=== PATIENT | female | born 1985 | race Caucasian/White ===

== ENCOUNTER 2017-10-04 03:28 | Inpatient (IN) | payer OTHER ==
[2017-10-04] MEDS: NS 1,000 ML IV (06:23)
[2017-10-04] MEDS: HYOSCYAMINE SULFATE 0.125 MG SUBL TABLET SL (06:24)
[2017-10-04] MEDS: ONDANSETRON 4MG/2ML VIAL (J2405) IV (06:24)
[2017-10-04] MEDS: KETOROLAC 30 MG/ML VIAL (J1885) IV (06:26)
[2017-10-04 06:43] LABS: BASO # 0.1 10^3/uL (0.0-0.2); BASO % 0.5 % (0.0-1.0); EOS # 0.1 10^3/uL (0.0-0.50); HEMATOCRIT 39.8 % (36.0-47.0); HEMOGLOBIN 13.2 g/dl (12.0-16.0); IMMATURE GRANULOCYTE # 0.1 10^3/uL (0-0); IMMATURE GRANULOCYTE % 0.7 % (0-0); LYMPH # 1.6 10^3/uL (1.5-4.5); LYMPH % 13.3 % (24.0-44.0); MEAN CORPUSCULAR HEMOGLOBIN 29.5 pg (27.0-33.0); MEAN CORPUSCULAR HGB CONC 33.2 g/dl (32.0-36.5); MEAN CORPUSCULAR VOLUME 88.8 fl (80.0-96.0); MONO # 0.5 10^3/uL (0.0-0.8); MONO % 4.2 % (0.0-5.0); NEUTROPHILS # 9.4 10^3/uL (1.8-7.7); NEUTROPHILS % 80.3 % (36.0-66.0); PLATELET COUNT, AUTOMATED 320 10^3/uL (150-450); RED BLOOD COUNT 4.48 10^6/uL (4.00-5.40); RED CELL DISTRIBUTION WIDTH 13.8 % (11.5-14.5); WHITE BLOOD COUNT 11.7 10^3/uL (4.0-10.0)
[2017-10-04 06:46] LABS: ALBUMIN 3.2 GM/DL (3.2-5.2); ALBUMIN/GLOBULIN RATIO 0.73 (1.00-1.93); ALKALINE PHOSPHATASE 57 U/L (45-117); ALT/SGPT 92 U/L (12-78); ANION GAP 11 MEQ/L (8-16); AST/SGOT 111 U/L (7-37); BILIRUBIN,DIRECT 0.4 MG/DL (0.0-0.2); BILIRUBIN,TOTAL 0.8 MG/DL (0.2-1.0); BLOOD UREA NITROGEN 14 MG/DL (7-18); CALCIUM LEVEL 9.3 MG/DL (8.5-10.1); CARBON DIOXIDE LEVEL 23 MEQ/L (21-32); CHLORIDE LEVEL 104 MEQ/L (98-107); CREATININE FOR GFR 1.04 MG/DL (0.55-1.02); GLOMERULAR FILTRATION RATE > 60.0 (>60); GLUCOSE, FASTING 231 MG/DL (70-105); LIPASE 11200 U/L (73-393); POTASSIUM SERUM 4.2 MEQ/L (3.5-5.1); SODIUM LEVEL 138 MEQ/L (136-145); TOTAL PROTEIN 7.6 GM/DL (6.4-8.2)
[2017-10-04] MEDS ORDERED: NORCO, ANEXSIA 5/325MG TABLET (HYDROcodone/ACETAMINOPHEN) PO (10:15)
[2017-10-04] MEDS ORDERED: MORPHINE 2 MG/ML 1ML SYRINGE IV (10:15)
[2017-10-04] MEDS ORDERED: KETOROLAC 30 MG/ML VIAL (J1885) IV (10:15)
[2017-10-04] MEDS ORDERED: ONDANSETRON 4MG/2ML VIAL (J2405) IV (10:15)
[2017-10-04] MEDS: PANTOPRAZOLE 40MG TAB (PROTONIX) PO (14:35)
[2017-10-04] MEDS: SENOKOT S TAB PO ×2 (14:35→20:08)
[2017-10-04] MEDS: LR 1,000 ML IV ×2 (14:35→20:06)
[2017-10-04] MEDS: HEPARIN SOD (PORCINE) 5000 UNITS/ML VIAL SC ×2 (14:35→21:20)
[2017-10-04] MEDS ORDERED: INFLUENZA QUADRIVALENT PF VACCINE 0.5ML SYRINGE (90686) IM (16:15)
[2017-10-04] MEDS: ACETAMINOPHEN TAB 650MG DOSE (2X325MG) PO (20:08)
[2017-10-05] MEDS: LR 1,000 ML IV (04:33)
[2017-10-05] MEDS: HEPARIN SOD (PORCINE) 5000 UNITS/ML VIAL SC (06:30)
[2017-10-05 07:14] LABS: HEMATOCRIT 37.2 % (36.0-47.0); HEMOGLOBIN 11.8 g/dl (12.0-16.0); MEAN CORPUSCULAR HEMOGLOBIN 28.4 pg (27.0-33.0); MEAN CORPUSCULAR HGB CONC 31.7 g/dl (32.0-36.5); MEAN CORPUSCULAR VOLUME 89.6 fl (80.0-96.0); PLATELET COUNT, AUTOMATED 269 10^3/uL (150-450); RED BLOOD COUNT 4.15 10^6/uL (4.00-5.40); RED CELL DISTRIBUTION WIDTH 13.5 % (11.5-14.5); WHITE BLOOD COUNT 5.8 10^3/uL (4.0-10.0)
[2017-10-05 07:42] LABS: ALBUMIN 2.7 GM/DL (3.2-5.2); ALBUMIN/GLOBULIN RATIO 0.73 (1.00-1.93); ALKALINE PHOSPHATASE 47 U/L (45-117); ALT/SGPT 83 U/L (12-78); ANION GAP 6 MEQ/L (8-16); AST/SGOT 49 U/L (7-37); BILIRUBIN,TOTAL 0.5 MG/DL (0.2-1.0); BLOOD UREA NITROGEN 13 MG/DL (7-18); CARBON DIOXIDE LEVEL 27 MEQ/L (21-32); CHLORIDE LEVEL 107 MEQ/L (98-107); GLOMERULAR FILTRATION RATE > 60.0 (>60); GLUCOSE, FASTING 154 MG/DL (70-105); LIPASE 287 U/L (73-393); POTASSIUM SERUM 4.2 MEQ/L (3.5-5.1); SODIUM LEVEL 140 MEQ/L (136-145); TOTAL PROTEIN 6.4 GM/DL (6.4-8.2)
[2017-10-05] MEDS: SENOKOT S TAB PO (08:48)
[2017-10-05] MEDS: PANTOPRAZOLE 40MG TAB (PROTONIX) PO (08:48)
== END 2017-10-05 10:55 | disposition home or self-care (01) | DRG 440 ==
LOC: M ED 03:28 → M ED INP 10:01 → M PED 13:55
DX: K85.10 Biliary acute pancreatitis without necrosis or infection (principal); I10 Essential (primary) hypertension; Z88.5 Allergy status to narcotic agent; Z90.5 Acquired absence of kidney; Z79.899 Other long term (current) drug therapy

== ENCOUNTER → 2017-10-21 | Outpatient (CLI) | payer OTHER | LOC: M WUC 11:45 | DX: Z01.812 Encounter for preprocedural laboratory examination (principal); R06.02 Shortness of breath; F17.200 Nicotine dependence, unspecified, uncomplicated | CPT/HCPCS: 71046 ==

== ENCOUNTER 2017-10-26 07:31 | Day surgery (SDC) | payer OTHER ==
[2017-10-26 08:15] LABS: CONTROL LINE UCG INT CTR LINE PRESENT; URINE PREG TEST NEGATIVE (NEGATIVE)
[2017-10-26] MEDS: LR 1,000 ML IV (08:25)
[2017-10-26] MEDS ORDERED: KETOROLAC 60 MG/2 ML VIAL (J1885) As Ordered (09:01)
[2017-10-26] MEDS ORDERED: MIDAZOLAM INJ 2 MG/2 ML VIAL (J2250) As Ordered (09:01)
[2017-10-26] MEDS ORDERED: ONDANSETRON 4MG/2ML VIAL (J2405) As Ordered ×2 (09:01→10:16)
[2017-10-26] MEDS ORDERED: fentaNYL 250 MCG/5 ML INJECTION (J3010) As Ordered (09:01)
[2017-10-26] MEDS ORDERED: PROPOFOL 200 MG/20 ML VIAL As Ordered ×2 (09:01→09:48)
[2017-10-26] MEDS ORDERED: LIDOCAINE 2% INJ 100 MG/5 ML SDV (FOR ANES.) As Ordered (09:01)
[2017-10-26] MEDS ORDERED: dexameTHASONE 4 MG/ML 1ML VIAL (J1100) As Ordered (09:01)
[2017-10-26] MEDS ORDERED: ROCURONIUM BROMIDE 50 MG/5 ML VIAL As Ordered ×2 (09:01→09:17)
[2017-10-26] MEDS ORDERED: GLYCOPYRROLATE INJ 0.2 MG/ML 2 ML VIAL As Ordered ×3 (09:06)
[2017-10-26] MEDS ORDERED: NEOSTIGMINE 10 MG/10 ML VIAL (J2710) As Ordered (09:06)
[2017-10-26] MEDS ORDERED: fentaNYL 100 MCG/2 ML INJECTION (J3010) As Ordered (09:23)
[2017-10-26] MEDS: BUPIVACAINE HCL 0.25% 30 ML VIAL As Ordered (09:57)
[2017-10-26] MEDS ORDERED: METOCLOPRAMIDE INJ 10MG/2ML VIAL (J2765) As Ordered (10:16)
[2017-10-26] MEDS: ONDANSETRON 4MG/2ML VIAL (J2405) IV (10:20)
[2017-10-26] MEDS: fentaNYL 100 MCG/2 ML INJECTION (J3010) IV ×2 (10:29→10:36)
[2017-10-26] MEDS ORDERED: PERCOCET 5MG/325MG TAB PO (10:30)
[2017-10-26] MEDS ORDERED: LR 1,000 ML IV (10:30)
[2017-10-26] MEDS: METOCLOPRAMIDE INJ 10MG/2ML VIAL (J2765) IV (11:08)
[2017-10-26] MEDS: NORCO, ANEXSIA 5/325MG TABLET (HYDROcodone/ACETAMINOPHEN) PO (11:42)
== END 2017-10-26 11:58 | disposition home or self-care (01) ==
LOC: M SDC 07:31
DX: K80.10 Calculus of gallbladder with chronic cholecystitis without obstruction (principal); K85.10 Biliary acute pancreatitis without necrosis or infection; I10 Essential (primary) hypertension; E66.9 Obesity, unspecified; N20.0 Calculus of kidney; F41.9 Anxiety disorder, unspecified; F32.9 Major depressive disorder, single episode, unspecified; Z68.44 Body mass index [BMI] 60.0-69.9, adult; Z88.5 Allergy status to narcotic agent; Z91.09 Other allergy status, other than to drugs and biological substances; Z79.3 Long term (current) use of hormonal contraceptives; Z79.899 Other long term (current) drug therapy; Z72.0 Tobacco use
CPT/HCPCS: 47562

== ENCOUNTER → 2024-05-25 | Outpatient (CLI) | payer OTHER ==
[~2024-05-25] MED LIST: DEPO150I IM; IBUP600T PO; LISI10TA22 PO; ONDA-1 OR; PERC5TAB8 OR; ZOLO50TA PO
== END ==
LOC: M WHC 11:36
PROVIDERS: ATTEND Physician Assistant Medical
DX: R10.2 Pelvic and perineal pain (principal); D25.1 Intramural leiomyoma of uterus

== ENCOUNTER → 2024-10-10 | Outpatient (CLI) | payer OTHER | LOC: M WHC 10:11 | PROVIDERS: ATTEND Obstetrics & Gynecology Obstetrics | DX: N93.9 Abnormal uterine and vaginal bleeding, unspecified (principal); D25.1 Intramural leiomyoma of uterus ==

== ENCOUNTER 2025-05-14 16:31 | Emergency (ER) | payer OTHER ==
[~2025-05-14] VITALS: Ht 154.9 cm; Wt 118.2 kg
[2025-05-14] MEDS ORDERED: LISI5TAB11 (16:53)
[2025-05-14] MEDS ORDERED: ESCITALOPRAM (16:53)
[2025-05-14] MEDS ORDERED: LORA-1041 (16:53)
[2025-05-14] MEDS ORDERED: METF10004 (16:53)
[2025-05-14] MEDS ORDERED: FARX1TAB5 (16:53)
[2025-05-14] MEDS ORDERED: VENTAER (16:53)
[2025-05-14] MEDS ORDERED: MELO15TA28 PO (20:38)
[2025-05-14 20:57] VITALS: BP 127/77; TEMP 97.5; O2SAT 99
[2025-05-14] MEDS: MELOXICAM 7.5 MG TAB PO STA (21:00)
== END 2025-05-14 21:03 | disposition home or self-care (01) ==
LOC: M ED 16:31
DX: S40.012A Contusion of left shoulder, initial encounter (principal); S30.0XXA Contusion of lower back and pelvis, initial encounter; W10.8XXA Fall (on) (from) other stairs and steps, initial encounter; Y92.009 Unspecified place in unspecified non-institutional (private) residence as the place of occurrence of the external cause; Y93.9 Activity, unspecified; Y99.9 Unspecified external cause status; E11.9 Type 2 diabetes mellitus without complications; I10 Essential (primary) hypertension; F32.A Depression, unspecified; J30.1 Allergic rhinitis due to pollen; J30.89 Other allergic rhinitis; Z79.84 Long term (current) use of oral hypoglycemic drugs; Z79.899 Other long term (current) drug therapy; Z88.5 Allergy status to narcotic agent

== ENCOUNTER 2025-07-04 11:08 | Emergency (ER) | payer OTHER ==
[~2025-07-04] VITALS: Ht 154.9 cm; Wt 117.5 kg
[~2025-07-04 11:08] MED LIST changes: +ESCITALOPRAM; +FARX1TAB5; +LISI5TAB11 PO; +LORA-1041 PO; +MELO15TA28 PO; +METF10004 PO; +VENTAER
[2025-07-04] MEDS ORDERED: TIRZ2.5P (11:42)
[2025-07-04] MEDS ORDERED: ROPI0.5T21 PO (11:42)
[2025-07-04 12:23] LABS: KETONE, URINE AUTO RFX NEGATIVE (NEGATIVE); LEUKOCYTE ESTERASE UR AUTO RFX NEGATIVE (NEGATIVE); NITRITE, URINE AUTO RFX NEGATIVE (NEGATIVE); RBC, URINE AUTO RFX 2 /HPF (0-3); SQUAM EPITHELIAL CELL UR AURFX 8 /HPF (0-6); WBC, URINE AUTO RFX 5 /HPF (0-3)
[2025-07-04 12:24] LABS: BASO # 0.1 10^3/uL (0.0-0.2); BASO % 0.7 % (0.0-1.0); EOS # 0.3 10^3/uL (0.0-0.5); EOS % 2.7 % (0.0-3.0); LYMPH # 1.8 10^3/uL (1.5-5.0); LYMPH % 17.3 % (24.0-44.0); MONO # 0.5 10^3/uL (0.0-0.8); MONO % 4.9 % (2.0-8.0); NEUTROPHILS # 7.5 10^3/uL (1.5-8.5); NEUTROPHILS % 74.1 % (36.0-66.0); PLATELET COUNT, AUTOMATED 371 10^3/uL (150-450)
[2025-07-04] MEDS: ONDANSETRON 4MG 2ML VIAL IV ONE (12:39)
[2025-07-04] MEDS: NS (Normal Saline) 0.9% 1,000 ML IV ONE (12:40)
[2025-07-04] MEDS: ACETAMINOPHEN *IV* 1,000 MG in IV 1 EA IV ONE (12:40)
[2025-07-04 12:55] LABS: ALT/SGPT 36 U/L (7.0-40); AST/SGOT 26 U/L (<34); CALCIUM LEVEL 9.6 MG/DL (8.5-10.1); CARBON DIOXIDE LEVEL 26 MMOL/L (20-31); CHLORIDE LEVEL 103 MMOL/L (98-107); CREATININE FOR GFR 0.87 MG/DL (0.55-1.30); GLOMERULAR FILTRATION RATE 86.9 (>60); POTASSIUM SERUM 4.9 MMOL/L (3.5-5.1); SODIUM LEVEL 136 MMOL/L (136-145)
[2025-07-04 13:37] LABS: HCG, SERUM QUALITATIVE NEGATIVE (NEGATIVE)
[2025-07-04] MEDS ORDERED: DAPA10TA5 PO (14:22)
[2025-07-04] MEDS ORDERED: LEXA1TAB PO (14:22)
[2025-07-04] MEDS ORDERED: TIRZ5PEN INJ (14:22)
[2025-07-04] MEDS ORDERED: HOME MED LIST COMPLETE! XX SCH (14:25)
[2025-07-04 14:42] VITALS: BP 109/57; TEMP 97.1; O2SAT 97
[2025-07-04] MEDS ORDERED: CARA1TAB6 PO (14:48)
[2025-07-04] MEDS ORDERED: PROT20TA11 PO (14:48)
== END 2025-07-04 14:55 | disposition home or self-care (01) ==
LOC: M ED 11:08
DX: R10.13 Epigastric pain (principal); E11.9 Type 2 diabetes mellitus without complications; J30.1 Allergic rhinitis due to pollen; J30.89 Other allergic rhinitis; Z87.442 Personal history of urinary calculi; Z79.84 Long term (current) use of oral hypoglycemic drugs; Z79.899 Other long term (current) drug therapy; Z88.5 Allergy status to narcotic agent
CPT/HCPCS: 74176; 80048; 80076; 81001; 83690; 84703; 85025; 96374; 96375; 99284; J0131; J2405